=== PATIENT | male | born 1980 | race Caucasian/White ===

== ENCOUNTER 2018-04-26 16:34 | Inpatient (IN) | payer BC ==
[2018-04-26] MEDS ORDERED: SODIUM CHLORIDE 0.9% 1,000 ML IV STA (17:00)
[2018-04-26] MEDS ORDERED: LABETALOL SYRINGE 5 MG/ML IVP STA ×2 (17:01→19:46)
[2018-04-26 17:54] LABS: Basophils # (A) 0.1 k/uL (0-0.2); Basophils % (A) 1 %; Eosinophils # (A) 0.1 k/uL (0-0.7); Eosinophils % (A) 1 %; HCT 45.4 % (39.0-53.0); HGB 15.1 gm/dL (13.0-17.5); Lymphocytes # (A) 1.8 k/uL (1.0-4.8); Lymphocytes % (A) 16 %; MCH 29.2 pg (25.0-35.0); MCHC 33.3 g/dL (31.0-37.0); MCV 87.5 fL (80.0-100.0); Mean Platelet Volume 7.3; Monocytes # (A) 0.6 k/uL (0-1.0); Monocytes % (A) 6 %; Neutrophils # (A) 8.1 k/uL (1.3-7.7); Neutrophils % (A) 74 %; Platelet Count 312 k/uL (150-450); RBC 5.19 m/uL (4.30-5.90); RDW 13.3 % (11.5-15.5); WBC 10.9 k/uL (3.8-10.6)
--- NOTE | 2018-04-26 18:00 | ED ---
URI HPI - General Chief Complaint: Recheck/Abnormal Lab/Rx Stated Complaint: hypertension/elevated troponin Time Seen by Provider: 04/26/18 17:00 Source: patient, EMS, RN notes reviewed, old records reviewed Mode of arrival: EMS Limitations: no limitations - History of Present Illness Initial Comments: This is a 2-year-old male the ER for evaluation. Patient resents today for evaluation and transfer from both in urgent care and [facility]. Patient originally thought it upper respiratory infection with cough and congestion, denies fever no chest pain. Patient was found is significantly elevated blood pressure and transferred to our facility for cardiology evaluation regarding blood pressure control. Patient himself at this time denies any chest pain, no significant shortness of breath or weakness. MD Complaint: cough, nasal congestion -: days(s) Severity: moderate Severity scale (1-10): 5 Quality: other (no pain) Consistency: constant Improves With: nothing Worsens With: nothing Context: sick contacts Associated Symptoms: denies other symptoms Treatments Prior to Arrival: none - Related Data Home Medications Medication Instructions Recorded Confirmed Aspirin/Sod Bicarb/Citric Acid 2 tab PO Q6HR PRN 04/26/18 04/26/18 [Cassie-Renae Original Tab Eff] Allergies Allergy/AdvReac Type Severity Reaction Status Date / Time No Known Allergies Allergy Verified 04/26/18 17:06 Review of Systems ROS Statement: Those systems with pertinent positive or pertinent negative responses have been documented in the HPI. ROS Other: All systems not noted in ROS Statement are negative. Past Medical History Past Medical History: Hypertension, Sleep Apnea/CPAP/BIPAP History of Any Multi-Drug Resistant Organisms: None Reported Additional Past Surgical History / Comment(s): gland removed on neck while a child Past Psychological History: No Psychological Hx Reported Smoking Status: Never smoker Past Alcohol Use History: Rare Past Drug Use History: None Reported General Exam Limitations: no limitations General appearance: alert, in no apparent distress Head exam: Present: atraumatic, normocephalic, normal inspection Eye exam: Present: normal appearance, PERRL, EOMI. Absent: scleral icterus, conjunctival injection, periorbital swelling ENT exam: Present: normal exam, mucous membranes moist Neck exam: Present: normal inspection. Absent: tenderness, meningismus, lymphadenopathy Respiratory exam: Present: normal lung sounds bilaterally, accessory muscle use , decreased breath sounds, prolonged expiratory. Absent: respiratory distress, wheezes, rales, rhonchi, stridor Cardiovascular Exam: Present: normal rhythm, tachycardia, normal heart sounds. Absent: systolic murmur, diastolic murmur, rubs, gallop, clicks GI/Abdominal exam: Present: soft, normal bowel sounds. Absent: distended, tenderness, guarding, rebound, rigid Extremities exam: Present: normal inspection, full ROM, normal capillary refill. Absent: tenderness, pedal edema, joint swelling, calf tenderness Back exam: Present: normal inspection Neurological exam: Present: alert, oriented X3, CN II-XII intact Psychiatric exam: Present: normal affect, normal mood Skin exam: Present: warm, dry, intact, normal color. Absent: rash Course Vital Signs 04/26/18 16:45 Temperature 98.1 F Pulse Rate 102 H Respiratory 18 Rate Blood Pressure 185/125 O2 Sat by Pulse 98 Oximetry - Reevaluation(s) Reevaluation #1: 04/26/18 17:58 Medical record is reviewed and transferring paperwork is reviewed Reevaluation #2: 04/26/18 17:58 Patient given blood pressure control Medical Decision Making - Medical Decision Making 38 male the ER was transferred for evaluation regarding hypertension, patient is brought to our facility for elevated blood pressure. Patient has persistent elevated blood pressure here in the emergency room, patient does not take blood pressure medication at home. Patient will be admitted for cardiology for evaluation - Radiology Data Radiology results: report reviewed (Chest x-rays negative for acute disease) Disposition Clinical Impression: Hypertensive urgency, Hypertension, Upper respiratory infection Disposition: ADMITTED IP TO THIS HOSP Condition: Fair Is patient prescribed a controlled substance at d/c from ED?: No Referrals: None,Stated [Primary Care Provider] - 1-2 days
[2018-04-26 18:07] LABS: INR 0.9 (<1.2); Partial Thromboplastin Time 24.3 sec (22.0-30.0)
[2018-04-26 18:09] LABS: D-Dimer 0.78 mg/L FEU (<0.60)
[2018-04-26 18:10] LABS: Albumin 3.5 g/dL (3.5-5.0); Calcium 9.2 mg/dL (8.4-10.2); Phosphorus 3.3 mg/dL (2.5-4.5); Potassium 4.3 mmol/L (3.5-5.1); Total Bilirubin 0.8 mg/dL (0.2-1.3); Total Protein 6.7 g/dL (6.3-8.2)
[2018-04-26] MEDS ORDERED: IPRATROPIUM-ALBUTEROL 3 ML NEB INHALATION STA (18:15)
[2018-04-26] MEDS ORDERED: IPRATROPIUM-ALBUTEROL 3 ML NEB INHALATION PRN (18:15)
[2018-04-26 18:32] LABS: Creatine Kinase MB 1.4 ng/mL (0.0-2.4)
[2018-04-26 18:34] LABS: Troponin I 0.072 ng/mL (0.000-0.034)
[2018-04-26] MEDS: SODIUM CHLORIDE 0.9% 1,000 ML IV SCH (19:16)
--- NOTE | 2018-04-26 20:52 | CT ---
EXAMINATION TYPE: CT angio chest DATE OF EXAM: 04/26/2018 7:36 PM COMPARISON: None HISTORY: Hypertension CT DLP: 1017.3 mGycm Automated exposure control for dose reduction was used. CONTRAST: CTA scan of the thorax is performed with IV Contrast, patient injected with 100 mL of Isovue 370, pul monary embolism protocol. There are 3-D post processed images.. FINDINGS: There is increased pulmonary interstitial diffuse density. There is no evidence of a pulmonary mass. There is no mediastinal adenopathy. There are no hilar masses. Heart appears slightly enlarged. There is no pericardial effusion. There is normal contrast opacification of the pulmonary arteries. There are no filling defect. There is small bilateral pleural effusions. IMPRESSION: NO EVIDENCE OF PULMONARY EMBOLISM. THERE IS PULMONARY INTERSTITIAL EDEMA AND SMALL PLEURAL EFFUSIONS. THIS COULD BE CONGESTIVE HEART FAILURE.
[2018-04-26] MEDS ORDERED: MORPHINE SULFATE 4 MG/ML SYRINGE IVP STA (21:18)
[2018-04-26] MEDS ORDERED: FUROSEMIDE 10 MG/ML 4 ML VIAL IV STA (21:18)
[2018-04-26] MEDS ORDERED: HEPARIN SODIUM,PORCINE 5,000 UNIT/ML 1 ML VIAL IV ONE (21:18)
[2018-04-26] MEDS ORDERED: hydrALAZINE HCL 20 MG/ML 1 ML VIAL IVP STA (21:18)
[2018-04-26] MEDS ORDERED: MORPHINE SULFATE 4 MG/ML SYRINGE IVP PRN (21:18)
[2018-04-26] MEDS: HEPARIN SOD,PORK IN 0.45% NACL 25,000 UNIT in 0.45% NACL 1 250ML.BAG IV SCH (22:04)
[2018-04-26 22:40] VITALS: BMI 52.9
[2018-04-27] MEDS: HEPARIN SODIUM,PORCINE 5,000 UNIT/ML 1 ML VIAL IV PRN ×2 (03:42→18:20)
[2018-04-27] MEDS ORDERED: ENOXAPARIN 40 MG/0.4 ML SYRINGE SQ SCH (09:00)
--- NOTE | 2018-04-27 09:06 | P.CRDCN ---
History of Present Illness Consult date: 04/27/18 Requesting physician: Juan Thomas Consult reason: hypertension Chief complaint: Hypertension History of present illness: This is a pleasant 38-year-old gentleman who in the past has had hypertension, states that he was in a stressful situation at that time, when she changed jobs his blood pressure stabilized and he discontinued his medication. He is a nonsmoker, not been told to have diabetes or hyperlipidemia however he only follows with a doctor as needed. Patient is obese, and he does have sleep apnea. He also states that his father had a myocardial infarction in his 50s. 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 According to the patient, he felt that he may have an upper respiratory infection, so he went to see his primary care doctor. It was noted there that his blood pressure was exceedingly high, he was given some Catapres and in spite of that continued to have an elevated blood pressure. He was then referred to go to [facility] and EKG was performed there which showed a sinus tachycardia with no acute changes. Laboratory data performed at [place] , sodium 137, potassium 4.3, BUN 18 and creatinine 1.6. Magnesium was 2.2, troponin 0.075. White blood cell count 12.0 hemoglobin 15.8 platelet count 370. Chest x-ray was performed at [place] as well which revealed possible interstitial lung disease and a questionable 1 cm nodule at the left lung base. Small pleural effusion with blunting of the posterior costophrenic angle with no pneumothorax. Because the patient was noted to have a mildly abnormal troponin and blood pressure remained elevated, he was transferred here to [facility]. EKG performed on arrival here showed a normal sinus rhythm with no acute changes. White blood cell count 10.9, hemoglobin 15.1, platelet count 312. D-dimer 0.78. Sodium 135, potassium 4.3, BUN 18 and creatinine 1.3. Plasma lactic acid 1.4 troponin 0.072 BNP 840 and and B-. Blood pressure on arrival here 185/125 with a heart rate of 102, 98% on room air. CTA of the chest was performed here which did not reveal any evidence of pulmonary embolism. There is pulmonary interstitial edema and small pleural effusions which could represent congestive heart failure. Blood pressure this morning 172 /90 with a heart rate in the 100, 92% on 2 L of oxygen. Patient does state that he uses his CPAP at home for sleep apnea however has not used that for the past few days because of his recent upper respiratory symptoms. He has been sleeping in his recliner for the past few days. He denies any overt chest discomfort, but does state that he has felt more short of breath than his usual. Past Medical History Past Medical History: Hypertension, Sleep Apnea/CPAP/BIPAP Additional Past Medical History / Comment(s): uses cpap machine at home History of Any Multi-Drug Resistant Organisms: None Reported Additional Past Surgical History / Comment(s): gland removed on neck while a child Past Anesthesia/Blood Transfusion Reactions: No Reported Reaction Past Psychological History: No Psychological Hx Reported Smoking Status: Never smoker Past Alcohol Use History: Rare Past Drug Use History: None Reported - Past Family History Mother Family Medical History: Diabetes Mellitus Father Family Medical History: Myocardial Infarction ([place]) Additional Family Medical History / Comment(s): from lung cancer Medications and Allergies Home Medications Medication Instructions Recorded Confirmed Type Aspirin/Sod Bicarb/Citric Acid 2 tab PO Q6HR PRN 04/26/18 04/26/18 History [Queenie Original Tab Eff] Allergies Allergy/AdvReac Type Severity Reaction Status Date / Time No Known Allergies Allergy Verified 04/26/18 17:06 Physical Exam Vitals: Vital Signs Temp Pulse Pulse Resp BP BP Pulse Ox 04/27/18 04:00 102 H 18 04/27/18 03:52 98.3 F 102 H 18 172/93 92 L 04/26/18 23:55 98.0 F 96 18 140/65 96 04/26/18 23:11 95 19 04/26/18 22:47 98.2 F 95 19 174/110 95 04/26/18 22:08 84 16 168/108 95 04/26/18 21:16 169/122 04/26/18 21:00 98 16 174/114 95 04/26/18 19:43 183/100 04/26/18 19:02 96 04/26/18 18:57 97 04/26/18 18:54 98.2 F 95 19 174/110 95 04/26/18 18:30 86 20 174/115 96 04/26/18 18:00 99 22 171/108 96 04/26/18 17:30 108 H 22 187/116 96 04/26/18 17:00 99 22 185/125 95 04/26/18 16:45 98.1 F 102 H 18 185/125 98 Intake and Output 04/26/18 04/27/18 04/27/18 22:59 06:59 14:59 Intake Total 815.833 Balance 815.833 Intake: Intake, IV Titration 215.833 Amount Heparin Sod,Pork in 0.45% 55.833 NaCl 25,000 unit In 0.45 % NaCl 1 250ml.bag @ 5. 326 UNITS/KG/HR 10 mls/hr IV .Q24H MALINA Rx#: [id number] Sodium Chloride 0.9% 1, 160 000 ml @ 20 mls/hr IV . Q24H MALINA Rx#:[id number] Oral 600 Other: Voiding Method Toilet Toilet Urinal Urinal # Voids 1 Weight 187 kg 187 kg PHYSICAL EXAMINATION: GENERAL: 38-year-old gentleman in no acute distress at the time of my examination HEENT: Head is atraumatic, normocephalic. Pupils equal, round. Sclera anicteric. Conjunctiva are clear. Mucous membranes of the mouth are moist. Neck is supple. There is no elevated jugular venous pressure. No carotid bruit is heard. HEART EXAMINATION: Heart S1, S2 normal. No murmur or gallop heard. CHEST EXAMINATION: On's are clear with diminished air entry to the bases ABDOMEN: Soft, obese, nontender. Bowel sounds are heard. No organomegaly noted. EXTREMITIES: 2+ peripheral pulses with trace evidence of peripheral edema and no calf tenderness noted. NEUROLOGIC patient is awake, alert and oriented 3 . . Results 04/26/18 17:24 04/26/18 17:24 Cardiac Enzymes 04/26/18 04/26/18 Range/Units 17:24 17:24 AST 33 (17-59) U/L CK-MB (CK-2) 1.4 (0.0-2.4) ng/mL Troponin I 0.072 H* (0.000-0.034) ng/mL Coagulation 04/26/18 04/27/18 Range/Units 17:24 03:04 PT 10.0 (9.0-12.0) sec APTT 24.3 23.2 (22.0-30.0) sec CBC 04/26/18 Range/Units 17:24 WBC 10.9 H (3.8-10.6) k/uL RBC 5.19 (4.30-5.90) m/uL Hgb 15.1 (13.0-17.5) gm/dL Hct 45.4 (39.0-53.0) % Plt Count 312 (150-450) k/uL Comprehensive Metabolic Panel 04/26/18 Range/Units 17:24 Sodium 135 L (137-145) mmol/L Potassium 4.3 (3.5-5.1) mmol/L Chloride 105 (98-107) mmol/L Carbon Dioxide 24 (22-30) mmol/L BUN 18 (9-20) mg/dL Creatinine 1.38 H (0.66-1.25) mg/dL Glucose 94 (74-99) mg/dL Calcium 9.2 (8.4-10.2) mg/dL AST 33 (17-59) U/L ALT 38 (21-72) U/L Alkaline Phosphatase 39 (38-126) U/L Total Protein 6.7 (6.3-8.2) g/dL Albumin 3.5 (3.5-5.0) g/dL Current Medications Generic Name Dose Route Start Last Admin Trade Name Freq PRN Reason Stop Dose Admin Albuterol/Ipratropium 3 ml 04/26/18 18:15 Duoneb 0.5 Mg-3 Mg/3 Ml Soln INHALATION RT-Q4H PRN Shortness Of Breath Or Wheezing Azithromycin 500 mg 04/27/18 09:00 Zithromax PO DAILY [facility] Heparin Sodium (Porcine) 0 unit 04/26/18 21:18 04/27/18 03:42 Heparin IV 4,000 unit PER PROTOCOL PRN Administration Low PTT Protocol Hydralazine HCl 10 mg 04/26/18 21:18 Apresoline IVP Q4HR PRN Blood Pressure - High Sodium Chloride 1,000 mls @ 20 mls/hr 04/26/18 18:15 04/26/18 19:16 Saline 0.9% IV Not Given .Q24H MALINA Heparin Sodium/Sodium Chloride 250 mls @ 10 mls/hr 04/26/18 21:30 04/27/18 03 :39 25,000 unit/ Sodium Chloride IV 8.326 units/kg/hr .Q24H MALINA 15.63 mls/hr Titration Protocol 5.326 UNITS/KG/HR Morphine Sulfate 4 mg 04/26/18 21:18 Morphine Sulfate (Inj) IVP Q4HR PRN Pain Intake and Output 04/26/18 04/27/18 04/27/18 22:59 06:59 14:59 Intake Total 815.833 Balance 815.833 Intake: Intake, IV Titration 215.833 Amount Heparin Sod,Pork in 0.45% 55.833 NaCl 25,000 unit In 0.45 % NaCl 1 250ml.bag @ 5. 326 UNITS/KG/HR 10 mls/hr IV .Q24H MALINA Rx#: [id number] Sodium Chloride 0.9% 1, 160 000 ml @ 20 mls/hr IV . Q24H MALINA Rx#:[id number] Oral 600 Other: Voiding Method Toilet Toilet Urinal Urinal # Voids 1 Weight 187 kg 187 kg 04/26/18 17:24 04/26/18 17:24 Assessment and Plan Plan: Assessment and plan #1 hypertensive urgency #2 morbid obesity #3 sleep apnea #4 possible bronchitis #5 family history of premature coronary artery disease #6 abnormality in troponin, could be secondary to accelerated hypertension, cannot completely rule out underlying coronary artery disease. We will obtain 2 subsequent troponins. Plan We will obtain an echocardiogram with Doppler study. We will also obtain a hemoglobin A1c. Give the patient a one-time dose of IV Lasix. We will also start the patient on beta kelsi and angiotensin kelsi to optimize blood pressure control. Further recommendations to follow. DNP note has been reviewed, I agree with a documented findings and plan of care. Patient was seen and examined.
[2018-04-27 09:52] LABS: Basophils # (A) 0.1 k/uL (0-0.2); Basophils % (A) 1 %; Eosinophils # (A) 0.1 k/uL (0-0.7); Eosinophils % (A) 1 %; HCT 43.6 % (39.0-53.0); Lymphocytes # (A) 2.3 k/uL (1.0-4.8); Lymphocytes % (A) 22 %; MCHC 32.2 g/dL (31.0-37.0); MCV 86.9 fL (80.0-100.0); Mean Platelet Volume 6.5; Monocytes # (A) 0.5 k/uL (0-1.0); Monocytes % (A) 5 %; Neutrophils # (A) 7.2 k/uL (1.3-7.7); Neutrophils % (A) 69 %; Platelet Count 324 k/uL (150-450); RBC 5.02 m/uL (4.30-5.90); RDW 13.6 % (11.5-15.5); WBC 10.4 k/uL (3.8-10.6)
[2018-04-27 10:00] LABS: Partial Thromboplastin Time 25.2 sec (22.0-30.0); Prothrombin Time 10.3 sec (9.0-12.0)
[2018-04-27] MEDS: AZITHROMYCIN 500 MG TAB PO SCH (10:04)
[2018-04-27] MEDS: hydrALAZINE HCL 20 MG/ML 1 ML VIAL IVP PRN ×3 (10:05→22:50)
[2018-04-27] MEDS: FUROSEMIDE 10 MG/ML 4 ML VIAL IV SCH (10:05)
[2018-04-27] MEDS: NADOLOL 20 MG TAB PO SCH ×2 (10:53→19:31)
[2018-04-27] MEDS: LOSARTAN 50 MG TAB PO SCH (10:53)
[2018-04-27 10:59] LABS: Cholesterol 191 mg/dL (<200); HDL Cholesterol 49 mg/dL (40-60); LDL Cholesterol,Calculated 119 mg/dL (0-99); Triglycerides 113 mg/dL (<150)
--- NOTE | 2018-04-27 12:47 | ECHOF ---
Referral Reason:htn MEASUREMENTS -------- HEIGHT: 182.9 cm WEIGHT: 186.9 kg BP: RVIDd: 2.8 cm (< 3.3) IVSd: 1.7 cm (0.6 - 1.1) LVIDd: 6.1 cm (3.9 - 5.3) LVPWd: 1.9 cm (0.6 - 1.1) IVSs: 1.9 cm LVIDs: 5.5 cm LVPWs: 1.8 cm Ao Diam: 3.8 cm (2.0 - 3.7) AV Cusp: 1.8 cm (1.5 - 2.6) LA Diam: 4.1 cm (2.7 - 3.8) MV EXCURSION: 13.189 mm (> 18.000) MV EF SLOPE: 79 mm/s (70 - 150) EPSS: 1.6 cm MV E Dino: 0.96 m/s MV DecT: 191 ms MV A Dino: 0.96 m/s MV E/A Ratio: 1.00 RAP: 5.00 mmHg RVSP: 11.24 mmHg FINDINGS -------- Sinus rhythm. Morbid Obesity This was a techncally difficult study with suboptimal views, , Lumason utilized for enhancement of im ages. The left ventricular size is normal. There is severe concentric left ventricular hypertrophy. Ove rall left ventricular systolic function is mild-moderately impaired with, an EF between 40 - 45 %. The right ventricle is normal in size. The left atrial size is normal. The right atrial size is normal. 5.0mg OF Lumason UTLIZED: 2 OR MORE WALL SEGMENTS NOT VISUALIZED. The aortic valve was not well visualized. Mild mitral annular calcification present. Mild mitral regurgitation is present. Mild tricuspid regurgitation present. There is no evidence of pulmonary hypertension. The right v entricular systolic pressure, as measured by Doppler, is 11.24mmHg. The pulmonic valve was not well visualized. The aortic root size is normal. There is no pericardial effusion. CONCLUSIONS -------- 1. Morbid Obesity 2. This was a techncally difficult study with suboptimal views, , Lumason utilized for enhancement of images. 3. The left ventricular size is normal. 4. There is severe concentric left ventricular hypertrophy. 5. Overall left ventricular systolic function is mild-moderately impaired with, an EF between 40 - 45 %. 6. The right ventricle is normal in size. 7. The left atrial size is normal. 8. The right atrial size is normal. 9. 5.0mg OF Lumason UTLIZED: 2 OR MORE WALL SEGMENTS NOT VISUALIZED. 10. The aortic valve was not well visualized. 11. Mild mitral annular calcification present. 12. Mild mitral regurgitation is present. 13. Mild tricuspid regurgitation present. 14. There is no evidence of pulmonary hypertension. 15. The right ventricular systolic pressure, as measured by Doppler, is 11.24mmHg. 16. The pulmonic valve was not well visualized. 17. The aortic root size is normal. 18. There is no pericardial effusion. RESPIRATORY SCIENTIST: Roxanna Yun RDCS
[2018-04-27] MEDS ORDERED: MORPHINE ORAL SOLN 10 MG/5 ML CUP PO PRN (15:43)
[2018-04-27] MEDS: SODIUM CHLORIDE 0.9% 1,000 ML IV SCH (18:05)
[2018-04-27 20:19] LABS: Hemoglobin A1C 5.4 % (4.0-6.0)
[2018-04-27] MEDS: HEPARIN SOD,PORK IN 0.45% NACL 25,000 UNIT in 0.45% NACL 1 250ML.BAG IV SCH (22:49)
[2018-04-27] MEDS ORDERED: LORazepam 0.5 MG TAB PO STA (23:46)
[2018-04-28 04:45] LABS: Basophils # (A) 0.1 k/uL (0-0.2); Basophils % (A) 1 %; Eosinophils # (A) 0.2 k/uL (0-0.7); Eosinophils % (A) 2 %; HCT 45.7 % (39.0-53.0); HGB 14.5 gm/dL (13.0-17.5); Lymphocytes # (A) 2.8 k/uL (1.0-4.8); Lymphocytes % (A) 21 %; MCH 27.8 pg (25.0-35.0); MCHC 31.8 g/dL (31.0-37.0); MCV 87.4 fL (80.0-100.0); Mean Platelet Volume 6.6; Monocytes # (A) 0.7 k/uL (0-1.0); Monocytes % (A) 6 %; Neutrophils # (A) 9.2 k/uL (1.3-7.7); Neutrophils % (A) 70 %; Platelet Count 320 k/uL (150-450); RBC 5.23 m/uL (4.30-5.90); RDW 13.5 % (11.5-15.5); WBC 13.2 k/uL (3.8-10.6)
[2018-04-28 04:57] LABS: INR 0.9 (<1.2); Partial Thromboplastin Time 42.2 sec (22.0-30.0); Prothrombin Time 10.1 sec (9.0-12.0)
[2018-04-28] MEDS: HEPARIN SODIUM,PORCINE 5,000 UNIT/ML 1 ML VIAL IV PRN (05:10)
[2018-04-28] MEDS: FUROSEMIDE 10 MG/ML 4 ML VIAL IV SCH (08:12)
[2018-04-28] MEDS: NADOLOL 20 MG TAB PO SCH ×2 (08:12→20:17)
[2018-04-28] MEDS: LOSARTAN 50 MG TAB PO SCH (08:12)
[2018-04-28] MEDS: AZITHROMYCIN 500 MG TAB PO SCH (08:12)
--- NOTE | 2018-04-28 13:32 | P.PN ---
Subjective Progress Note Date: 04/28/18 Principal diagnosis: CHF/non-STEMI This is a pleasant 38-year-old gentleman with a past medical history significant for obesity who was admitted to the hospital was hypertensive urgency. The cardiac enzymes were found to be slightly elevated. Also the patient was in mild congestive heart failure. He underwent an echocardiogram which revealed impaired LV function. No significant valvular abnormalities seen. On follow-up with the patient today, April 282018, he is feeling better internal shortness of breath. The blood pressure has improved. Currently he denies having any chest pain or chest discomfort. I am going to keep him on the current dose of Lasix IV. Beside that he is on ARB and also he is on beta kelsi. I am going to add Aldactone to the current medical regimen. He does need to have a heart catheterization either as an inpatient or as an outpatient. Objective - Vital Signs Vital signs: Vital Signs Temp 98.8 F 04/28/18 08:15 Pulse 77 04/28/18 12:10 Resp 17 04/28/18 12:10 BP 154/76 04/28/18 12:10 Pulse Ox 95 04/28/18 12:10 Intake & Output 04/27/18 04/28/18 04/28/18 18:59 06:59 18:59 Intake Total 1134.62 1031.193 360 Balance 1134.62 1031.193 360 Weight 182.2 kg Intake: IV 150 heparin 150 Intake, IV Titration 264.62 431.193 Amount Heparin Sod,Pork in 0.45% 114.62 271.193 NaCl 25,000 unit In 0.45 % NaCl 1 250ml.bag @ 5. 326 UNITS/KG/HR 10 mls/hr IV .Q24H MALINA Rx#: [id number] Sodium Chloride 0.9% 1, 150 160 000 ml @ 20 mls/hr IV . Q24H MALINA Rx#:[id number] Oral 720 600 360 Other: Voiding Method Toilet Urinal # Voids 2 1 2 - Constitutional General appearance: Present: no acute distress - Respiratory Respiratory: bilateral: rales - Cardiovascular Rhythm: regular Heart sounds: normal: S1, S2 - Labs CBC & Chem 7: 04/28/18 04:07 04/26/18 17:24 Labs: Abnormal Lab Results - Last 24 Hours (Table) 04/27/18 04/27/1819 Range/Units 16:03 21:12 21:12 WBC (3.8-10.6) k/uL Neutrophils # (1.3-7.7) k/uL APTT 40.9 H (22.0-30.0) sec Troponin I 0.051 H* 0.044 H* (0.000-0.034) ng/mL 04/28/18 04/28/18 04/28/18 Range/Units 04:07 04:07 11:17 WBC 13.2 H (3.8-10.6) k/uL Neutrophils # 9.2 H (1.3-7.7) k/uL APTT 42.2 H 58.5 H (22.0-30.0) sec Troponin I (0.000-0.034) ng/mL Assessment and Plan Assessment: Assessment #1 hypertension urgency which has improved #2 mildly abnormal cardiac enzymes #3 cardiomyopathy, unknown if is ischemic or nonischemic #4 mild CHF secondary to systolic dysfunction #5 morbid obesity Plan #1 continue the current medical regimen #2 continue IV Lasix for additional 24 hours #3 continue monitor the kidney function and electrolytes #4 add Aldactone to her current medical regimen #5 consider coronary angiogram.
[2018-04-28 15:01] LABS: Calcium 9.5 mg/dL (8.4-10.2); Potassium 4.7 mmol/L (3.5-5.1)
[2018-04-28] MEDS: SODIUM CHLORIDE 0.9% 1,000 ML IV SCH (15:11)
[2018-04-28] MEDS: HEPARIN SOD,PORK IN 0.45% NACL 25,000 UNIT in 0.45% NACL 1 250ML.BAG IV SCH ×2 (15:18→21:28)
[2018-04-29 05:52] LABS: Basophils # (A) 0.1 k/uL (0-0.2); Basophils % (A) 1 %; Eosinophils # (A) 0.3 k/uL (0-0.7); Eosinophils % (A) 2 %; HCT 46.1 % (39.0-53.0); HGB 14.7 gm/dL (13.0-17.5); Lymphocytes % (A) 26 %; MCH 27.9 pg (25.0-35.0); MCHC 31.8 g/dL (31.0-37.0); MCV 87.7 fL (80.0-100.0); Mean Platelet Volume 6.6; Monocytes # (A) 0.6 k/uL (0-1.0); Monocytes % (A) 5 %; Neutrophils # (A) 7.6 k/uL (1.3-7.7); Neutrophils % (A) 64 %; Platelet Count 340 k/uL (150-450); RBC 5.25 m/uL (4.30-5.90); RDW 13.5 % (11.5-15.5); WBC 11.9 k/uL (3.8-10.6)
[2018-04-29 05:59] LABS: Partial Thromboplastin Time 61.1 sec (22.0-30.0); Prothrombin Time 10.5 sec (9.0-12.0)
[2018-04-29] MEDS: SPIRONOLACTONE 25 MG TAB PO SCH (08:08)
[2018-04-29] MEDS: FUROSEMIDE 10 MG/ML 4 ML VIAL IV SCH (08:08)
[2018-04-29] MEDS: AZITHROMYCIN 500 MG TAB PO SCH (08:08)
[2018-04-29] MEDS: NADOLOL 20 MG TAB PO SCH ×2 (08:08→21:12)
[2018-04-29] MEDS: LOSARTAN 50 MG TAB PO SCH (08:08)
--- NOTE | 2018-04-29 11:29 | P.HPIM ---
History of Present Illness H&P Date: 04/29/18 Chief Complaint: Shortness and breath and cough The patient is a 38-year-old morbidly obese male with a medical history of essential hypertension and obstructive sleep apnea that was apparently admitted 3 days ago from the ER. The patient reports that he initially presented to urgent care complaining of 2 weeks of worsening productive cough and increasing shortness of breath with wheezes, the patient reported only cough shortness of breath and chest and head congestion, he denied any subjective fevers chills or night sweats. He was then you referred to [facility] in [place] where he had a workup with EKG showed sinus tachycardia, chest x-ray showed possible interstitial lung disease and a questionable 1 cm nodule on left lung base with small pleural effusion subsequently referred here for extremely elevated blood pressure pressure with hypertensive urgency 185/125 with a referral plan for cardiology given abnormal troponin 0.075. REPEAT EKG here showed sinus mechanism with no evidence of his acute ischemia, BNP 840, troponin was 0.072, d-dimer was 0.78. CTA of the chest was performed and did not reveal evidence of PE but did show pulmonary interstitial edema and small pleural effusions which could represent congestive heart failure. Subsequent 2-D echocardiogram confirmed ejection fraction of 40- 45%. The patient was started on IV heparin, breathing treatments, diuresis with Lasix and spironolactone and started on a Z-Drake. Review of Systems Pertinent positives per HPI all other review of systems otherwise negative Past Medical History Past Medical History: Hypertension, Sleep Apnea/CPAP/BIPAP Additional Past Medical History / Comment(s): uses cpap machine at home History of Any Multi-Drug Resistant Organisms: None Reported Additional Past Surgical History / Comment(s): gland removed on neck while a child Past Anesthesia/Blood Transfusion Reactions: No Reported Reaction Past Psychological History: No Psychological Hx Reported Smoking Status: Never smoker Past Alcohol Use History: Rare Past Drug Use History: None Reported - Past Family History Mother Family Medical History: Diabetes Mellitus Father Family Medical History: Myocardial Infarction ([place]) Additional Family Medical History / Comment(s): from lung cancer Medications and Allergies Home Medications Medication Instructions Recorded Confirmed Type Aspirin/Sod Bicarb/Citric Acid 2 tab PO Q6HR PRN 04/26/18 04/26/18 History [Queenie Original Tab Eff] Albuterol Inhaler [Ventolin Hfa 4 puff INHALATION RT-Q6H PRN #1 04/29/18 Rx Inhaler] inhaler Azithromycin [Zithromax] 500 mg PO DAILY #3 tab 04/29/18 Rx Furosemide [Lasix] 40 mg PO DAILY #30 tab 04/29/18 Rx Losartan [Cozaar] 50 mg PO DAILY #30 tab 04/29/18 Rx Nadolol [Corgard] 20 mg PO BID #60 tab 04/29/18 Rx Spironolactone [Aldactone] 25 mg PO DAILY #30 tab 04/29/18 Rx Allergies Allergy/AdvReac Type Severity Reaction Status Date / Time No Known Allergies Allergy Verified 04/26/18 17:06 Physical Exam Vitals: Vital Signs Temp Pulse Resp BP Pulse Ox 04/29/18 08:00 97.9 F 76 20 144/89 98 04/29/18 04:00 98.2 F 70 16 129/75 94 L 04/29/18 00:00 97.9 F 80 18 138/81 98 04/28/18 20:00 98.4 F 71 18 142/96 96 04/28/18 16:30 78 18 146/89 96 04/28/18 12:10 77 17 154/76 95 Intake and Output 04/28/18 04/29/18 04/29/18 22:59 06:59 14:59 Intake Total 570.715 160 360 Balance 570.715 160 360 Intake: Intake, IV Titration 210.715 160 Amount Heparin Sod,Pork in 0.45% 210.715 NaCl 25,000 unit In 0.45 % NaCl 1 250ml.bag @ 5. 326 UNITS/KG/HR 10 mls/hr IV .Q24H [facility] Rx#: [id number] Sodium Chloride 0.9% 1, 160 000 ml @ 20 mls/hr IV . Q24H [facility] Rx#:[id number] Oral 360 360 Other: Voiding Method Toilet Toilet Urinal Urinal # Voids 3 1 2 Weight 181.6 kg Constitutional: No acute distress, conversant, pleasant Eyes: Anicteric sclerae, moist conjunctiva, no lid-lag, PERRLA ENMT: NC/AT,Oropharynx clear, no erythema, exudates Neck:Supple, FROM, no masses, or JVD, No carotid bruits; No thyromegaly Lungs: Clear to auscultation, Clear to percussion, Normal respiratory effort, no accessory muscle use Cardiovascular: Heart regular in rate and rhythm, No murmurs, gallops, or rubs no peripheral edema Abdominal: Soft Nontender, nom distended, no guarding, no rebound or rigidity, Normoactive bowel sounds No hepatomegaly, No splenomegaly, No palpable mass No abdominal wall hernia noted Skin: Normal temperature, tone, texture, turgor, No induration No subcutaneous nodules, No rash, lesions, No ulcers Extremities:No digital cyanosis No clubbing, Pedal pulses intact and symmetrical Radial pulses intact and symmetrical Normal gait and station, No calf tenderness Psychiatric: Alert and oriented to person, place and time, Appropriate affect Intact judgement Neuro: Muscles Strength 5/5 in all 4 extremities, Sensation to light touch grossly present throughout, Cranial nerves II-XII grossly intact. No focal sensory deficits Results CBC & Chem 7: 04/29/18 05:36 04/29/18 05:36 Labs: Abnormal Lab Results - Last 24 Hours (Table) 04/28/18 04/28/18 04/29/18 Range/Units 11:17 14:11 05:36 WBC 11.9 H (3.8-10.6) k/uL APTT 58.5 H (22.0-30.0) sec Sodium 136 L (137-145) mmol/L BUN 26 H (9-20) mg/dL Creatinine 1.62 H (0.66-1.25) mg/dL 04/29/18 Range/Units 05:36 WBC (3.8-10.6) k/uL APTT 61.1 H (22.0-30.0) sec Sodium (137-145) mmol/L BUN (9-20) mg/dL Creatinine (0.66-1.25) mg/dL Thrombosis Risk Factor Assmnt - Choose All That Apply Any of the Below Risk Factors Present?: Yes Each Factor Represents 1 point: Obesity (BMI >25) Other Risk Factors: No Other congenital or acquired thrombophilia - If yes, enter type in comment: No Thrombosis Risk Factor Assessment Total Risk Factor Score: 1 Thrombosis Risk Factor Assessment Level: Low Risk Assessment and Plan (1) Acute bronchitis Current Visit: Yes Status: Acute Code(s): J20.9 - ACUTE BRONCHITIS, UNSPECIFIED SNOMED Code(s): 00583942 (2) Elevated troponin Current Visit: Yes Status: Acute Code(s): R74.8 - ABNORMAL LEVELS OF OTHER SERUM ENZYMES SNOMED Code(s): 171111654 (3) Systolic CHF, acute Current Visit: Yes Status: Acute Code(s): I50.21 - ACUTE SYSTOLIC ( CONGESTIVE) HEART FAILURE SNOMED Code(s): 095853721 (4) Dyspnea Current Visit: Yes Status: Acute Code(s): R06.00 - DYSPNEA, UNSPECIFIED SNOMED Code(s): 887653943 (5) Hypertensive urgency Current Visit: Yes Status: Acute Code(s): I16.0 - HYPERTENSIVE URGENCY SNOMED Code(s): 563965967 (6) HARVINDER (acute kidney injury) Current Visit: Yes Status: Acute Code(s): N17.9 - ACUTE KIDNEY FAILURE, UNSPECIFIED SNOMED Code(s): 22359912 Plan: The patient was admitted with multifactorial dyspnea secondary to acute bronchitis superimposed on the acute systolic CHF exacerbation in the setting of hypertensive urgency the patient was initially started on IV Lasix and initiated on a hypertensive regimen to bring down his blood pressure was started on beta kelsi nadolol, ARB losartan, diuretics Lasix and Aldactone. The patient diuresed well gradually became clinically euvolemic, the patient was seen by cardiology, and was determined elevated troponins were triggered by his hypertensive urgency in the setting acute systolic CHF. The patient was continue with treatment for acute bronchitis with a Z-Drake along with breathing treatments. The patient's status clinically improved his IV anticoagulation with heparin was discontinued, After being cleared by cardiology with plans for follow-up later this week with Dr. London. Repeat BMP today showing worsening kidney injury with creatinine trending up to 1.7, possibly secondary to diuresis will order renal ultrasound consult nephrology for further recommendations. Patient placed on SCDs for DVT prophylaxis CODE STATUS Full code Anticipated discharge 1-2 days Discussed plan of care with the patient
--- NOTE | 2018-04-29 12:11 | P.PN ---
Subjective Progress Note Date: 04/29/18 This is a pleasant 38-year-old gentleman who in the past has had hypertension, states that he was in a stressful situation at that time, when she changed jobs his blood pressure stabilized and he discontinued his medication. He is a nonsmoker, not been told to have diabetes or hyperlipidemia however he only follows with a doctor as needed. Patient is obese, and he does have sleep apnea. He also states that his father had a myocardial infarction in his 50s. 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 According to the patient, he felt that he may have an upper respiratory infection, so he went to see his primary care doctor. It was noted there that his blood pressure was exceedingly high, he was given some Catapres and in spite of that continued to have an elevated blood pressure. He was then referred to go to [facility] and EKG was performed there which showed a sinus tachycardia with no acute changes. Laboratory data performed at [facility] , sodium 137, potassium 4.3, BUN 18 and creatinine 1.6. Magnesium was 2.2, troponin 0.075. White blood cell count 12.0 hemoglobin 15.8 platelet count 370. Chest x-ray was performed at [facility] as well which revealed possible interstitial lung disease and a questionable 1 cm nodule at the left lung base. Small pleural effusion with blunting of the posterior costophrenic angle with no pneumothorax. Because the patient was noted to have a mildly abnormal troponin and blood pressure remained elevated, he was transferred here to [facility]. EKG performed on arrival here showed a normal sinus rhythm with no acute changes. White blood cell count 10.9, hemoglobin 15.1, platelet count 312. D-dimer 0.78. Sodium 135, potassium 4.3, BUN 18 and creatinine 1.3. Plasma lactic acid 1.4 troponin 0.072 BNP 840 and and B-. Blood pressure on arrival here 185/125 with a heart rate of 102, 98% on room air. CTA of the chest was performed here which did not reveal any evidence of pulmonary embolism. There is pulmonary interstitial edema and small pleural effusions which could represent congestive heart failure. Blood pressure this morning 172 /90 with a heart rate in the 100, 92% on 2 L of oxygen. Patient does state that he uses his CPAP at home for sleep apnea however has not used that for the past few days because of his recent upper respiratory symptoms. He has been sleeping in his recliner for the past few days. He denies any overt chest discomfort, but does state that he has felt more short of breath than his usual. 04/29/2018 Patient seen and examined this morning, states he is feeling much better than on presentation here, creatinine today is 1.6, blood pressure 144/70. Weight is down 1 kg today. Objective - Vital Signs Vital signs: Vital Signs Temp 97.9 F 04/29/18 11:31 Pulse 68 04/29/18 11:31 Resp 20 04/29/18 11:31 BP 167/97 04/29/18 11:31 Pulse Ox 96 04/29/18 11:31 Intake & Output 04/28/18 04/29/18 04/29/18 18:59 06:59 18:59 Intake Total 1080 370.715 360 Balance 1080 370.715 360 Weight 181.6 kg Intake: Intake, IV Titration 370.715 Amount Heparin Sod,Pork in 0.45% 210.715 NaCl 25,000 unit In 0.45 % NaCl 1 250ml.bag @ 5. 326 UNITS/KG/HR 10 mls/hr IV .Q24H [facility] Rx#: [id number] Sodium Chloride 0.9% 1, 160 000 ml @ 20 mls/hr IV . Q24H [facility] Rx#:[id number] Oral 1080 360 Other: Voiding Method Toilet Urinal # Voids 3 1 2 - Exam PHYSICAL EXAMINATION: GENERAL: 38-year-old gentleman in no acute distress at the time of my examination HEENT: Head is atraumatic, normocephalic. Pupils equal, round. Sclera anicteric. Conjunctiva are clear. Mucous membranes of the mouth are moist. Neck is supple. There is no elevated jugular venous pressure. No carotid bruit is heard. HEART EXAMINATION: Heart S1, S2 normal. No murmur or gallop heard. CHEST EXAMINATION: Lungs are clear to auscultation ABDOMEN: Soft, obese, nontender. Bowel sounds are heard. No organomegaly noted. EXTREMITIES: 2+ peripheral pulses with trace evidence of peripheral edema and no calf tenderness noted. NEUROLOGIC patient is awake, alert and oriented 3 . - Labs CBC & Chem 7: 04/29/18 05:36 04/28/18 14:11 Labs: Abnormal Lab Results - Last 24 Hours (Table) 04/28/18 04/28/18 04/29/18 Range/Units 11:17 14:11 05:36 WBC 11.9 H (3.8-10.6) k/uL APTT 58.5 H (22.0-30.0) sec Sodium 136 L (137-145) mmol/L BUN 26 H (9-20) mg/dL Creatinine 1.62 H (0.66-1.25) mg/dL 04/29/18 Range/Units 05:36 WBC (3.8-10.6) k/uL APTT 61.1 H (22.0-30.0) sec Sodium (137-145) mmol/L BUN (9-20) mg/dL Creatinine (0.66-1.25) mg/dL Assessment and Plan Plan: Assessment and plan #1 hypertensive urgency #2 morbid obesity #3 sleep apnea #4 possible bronchitis #5 family history of premature coronary artery disease #6 abnormality in troponin, could be secondary to accelerated hypertension, cannot completely rule out underlying coronary artery disease. Plan From cardiology's perspective, we'll discontinue the IV Lasix today and change patient over to oral diuretics. He may be able to be discharged home from our standpoint. We'll make him a follow-up appointment to see Dr. London in the office post discharge. Outpatient cardiac catheterization will be performed. DNP note has been reviewed, I agree with a documented findings and plan of care. Patient was seen and examined.
[2018-04-29 13:45] LABS: Calcium 9.4 mg/dL (8.4-10.2); Magnesium 2.3 mg/dL (1.6-2.3); Potassium 4.6 mmol/L (3.5-5.1)
--- NOTE | 2018-04-29 16:06 | US ---
EXAMINATION TYPE: US kidneys/renal and bladder DATE OF EXAM: 04/29/2018 COMPARISON: NONE CLINICAL HISTORY: 38-year-old male HARVINDER vs CKD. TECHNIQUE: Multiple sonographic images of the kidneys and bladder are obtained. 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 No significant cortical thickening on either side. Bladder: Partially distended Bilateral Jets seen: Yes IMPRESSION: No hydronephrosis. The kidneys are overall normal in size
[2018-04-29] MEDS: HEPARIN SOD,PORK IN 0.45% NACL 25,000 UNIT in 0.45% NACL 1 250ML.BAG IV SCH (22:30)
[2018-04-30 00:54] VITALS: RESP 15
[2018-04-30] MEDS: SODIUM CHLORIDE 0.9% 1,000 ML IV SCH (06:22)
[2018-04-30 07:31] LABS: Basophils # (A) 0.1 k/uL (0-0.2); Basophils % (A) 1 %; Eosinophils # (A) 0.2 k/uL (0-0.7); Eosinophils % (A) 2 %; HCT 47.6 % (39.0-53.0); HGB 15.1 gm/dL (13.0-17.5); Lymphocytes # (A) 2.2 k/uL (1.0-4.8); Lymphocytes % (A) 20 %; MCH 28.3 pg (25.0-35.0); MCHC 31.8 g/dL (31.0-37.0); Mean Platelet Volume 6.7; Monocytes # (A) 0.8 k/uL (0-1.0); Monocytes % (A) 7 %; Neutrophils # (A) 7.4 k/uL (1.3-7.7); Neutrophils % (A) 67 %; Platelet Count 338 k/uL (150-450); RBC 5.34 m/uL (4.30-5.90); RDW 13.4 % (11.5-15.5)
[2018-04-30 07:38] LABS: Partial Thromboplastin Time 24.3 sec (22.0-30.0); Prothrombin Time 10.3 sec (9.0-12.0)
[2018-04-30 07:48] LABS: Calcium 9.7 mg/dL (8.4-10.2); Potassium 4.9 mmol/L (3.5-5.1)
[2018-04-30] MEDS ORDERED: FUROSEMIDE 40 MG TAB PO SCH (09:00)
[2018-04-30] MEDS: AZITHROMYCIN 500 MG TAB PO SCH (09:08)
[2018-04-30] MEDS: LOSARTAN 50 MG TAB PO SCH (09:08)
[2018-04-30] MEDS: NADOLOL 20 MG TAB PO SCH (09:08)
[2018-04-30] MEDS: SPIRONOLACTONE 25 MG TAB PO SCH (09:08)
[2018-04-30 11:19] VITALS: BP 129/84; TEMP 98.1
--- NOTE | 2018-04-30 12:18 | P.NPCON ---
History of Present Illness - Reason for Consult acute renal failure - History of Present Illness Reason for presentation: Acute kidney injury History of present illness: Patient is a 38-year-old male seen in renal consultation for acute kidney injury. Creatinine on 04/26/2018 was 1.38. It is up to 1.77 today. No other records available. 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 Patient presented to the hospital due to elevated high blood pressure. Echocardiogram revealed ejection fraction of 40-45%. He was initially on IV Lasix and is now maintained on oral Lasix 40 mg once daily. No edema. Denies any active chest pain or shortness of breath. Admits to good urine output. No hematuria or dysuria. Denies use of NSAIDs. Blood pressure is well controlled. No evidence of hydronephrosis noted on renal ultrasound. Denies family history of renal disease. No history of diabetes. He did receive IV contrast dye for CT on April 26 which revealed no evidence of PE. Vital signs are stable. General: The patient appeared well nourished and normally developed. HEENT: Head exam is unremarkable. Neck is without jugular venous distension. LUNGS: Lungs are clear to auscultation and percussion. Breath sounds decreased. HEART: Rate and Rhythm are regular. First and second heart sounds normal. No murmurs, rubs or gallops. ABDOMEN: Abdominal exam reveals normal bowel sounds. Non-tender and non- distended. No evidence of peritonitis. EXTREMITITES: No clubbing, cyanosis, or edema. Past Medical History Past Medical History: Hypertension, Sleep Apnea/CPAP/BIPAP Additional Past Medical History / Comment(s): uses cpap machine at home History of Any Multi-Drug Resistant Organisms: None Reported Additional Past Surgical History / Comment(s): gland removed on neck while a child Past Anesthesia/Blood Transfusion Reactions: No Reported Reaction Past Psychological History: No Psychological Hx Reported Smoking Status: Never smoker Past Alcohol Use History: Rare Past Drug Use History: None Reported - Past Family History Mother Family Medical History: Diabetes Mellitus Father Family Medical History: Myocardial Infarction ([place]) Additional Family Medical History / Comment(s): from lung cancer Medications and Allergies Home Medications Medication Instructions Recorded Confirmed Type Aspirin/Sod Bicarb/Citric Acid 2 tab PO Q6HR PRN 04/26/18 04/26/18 History [Queenie Original Tab Eff] Albuterol Inhaler [Ventolin Hfa 4 puff INHALATION RT-Q6H PRN #1 04/29/18 Rx Inhaler] inhaler Azithromycin [Zithromax] 500 mg PO DAILY #3 tab 04/29/18 Rx Furosemide [Lasix] 40 mg PO DAILY #30 tab 04/29/18 Rx Losartan [Cozaar] 50 mg PO DAILY #30 tab 04/29/18 Rx Nadolol [Corgard] 20 mg PO BID #60 tab 04/29/18 Rx Spironolactone [Aldactone] 25 mg PO DAILY #30 tab 04/29/18 Rx Allergies Allergy/AdvReac Type Severity Reaction Status Date / Time No Known Allergies Allergy Verified 04/26/18 17:06 Physical Exam Vitals: Vital Signs Temp Pulse Resp BP Pulse Ox 04/30/18 08:00 98.1 F 75 129/84 97 04/30/18 06:02 70 15 129/82 98 04/30/18 00:54 75 15 132/83 97 04/29/18 21:11 98.7 F 100 16 138/83 99 04/29/18 16:00 97.8 F 69 20 121/67 94 L Intake and Output 04/29/18 04/30/18 04/30/18 22:59 06:59 14:59 Intake Total 360 600 360 Balance 360 600 360 Intake: Oral 360 600 360 Other: Voiding Method Toilet Toilet Urinal Urinal # Voids 2 3 1 Weight 181 kg Results - Lab Results Most recent lab results Calcium 9.7 mg/dL (8.4-10.2) 04/30/18 06:50 Phosphorus 3.3 mg/dL (2.5-4.5) 04/26/18 17:24 Magnesium 2.3 mg/dL (1.6-2.3) 04/29/18 05:36 04/30/18 06:50 04/30/18 06:50 Assessment and Plan Plan: Assessment: 1. Acute kidney injury secondary to ATN secondary to contrast-induced nephropathy as well as diuresis. Creatinine 1.77 today. No evidence of hydronephrosis noted on renal ultrasound. Unclear as to what his baseline renal function is. Creatinine on admission was 1.38. 2. Systolic CHF with ejection fraction of 40-45%. 3. Volume overload. Better. 4. Benign hypertension. Controlled. Partially volume sensitive. 5. Metabolic acidosis secondary to acute kidney injury. Plan: Maintain Lasix 40 mg once daily. Stable to be discharged from nephrology standpoint. Repeat BMP and magnesium in 2-3 days postdischarge. Follow up outpatient in the next 1-2 weeks. Thank you for the consultation. I will continue to follow the patient with you during his hospital stay.
--- NOTE | 2018-04-30 13:48 | P.DS ---
Providers Date of admission: 04/26/18 18:15 Expected date of discharge: 04/30/18 Attending physician: Juan Thomas MD Consults: 04/26/18 18:15 Consult Physician Routine Consulting Provider: Meng Simpson Consult Reason/Comments: HTN Do you want consulting provider notified?: Yes 04/29/18 14:20 Consult Physician Routine Consulting Provider: Keo Lyons Consult Reason/Comments: HARVINDER vs cKD Do you want consulting provider notified?: Yes Primary care physician: Stated None - Discharge Diagnosis(es) (1) Acute bronchitis Current Visit: Yes Status: Acute (2) Elevated troponin Current Visit: Yes Status: Acute (3) Systolic CHF, acute Current Visit: Yes Status: Acute (4) Dyspnea Current Visit: Yes Status: Acute (5) Hypertensive urgency Current Visit: Yes Status: Acute (6) HARVINDER (acute kidney injury) Current Visit: Yes Status: Acute Hospital Course: The patient was admitted with multifactorial dyspnea secondary to acute bronchitis superimposed on the acute systolic CHF exacerbation in the setting of hypertensive urgency the patient was initially started on IV Lasix and initiated on a hypertensive regimen to bring down his blood pressure was started on beta kelsi nadolol, ARB losartan, diuretics Lasix and Aldactone. The patient diuresed well gradually became clinically euvolemic, the patient was seen by cardiology, and was determined elevated troponins were triggered by his hypertensive urgency in the setting acute systolic CHF. The patient was continue with treatment for acute bronchitis with a Z-Drake along with breathing treatments. The patient's status clinically improved his IV anticoagulation with heparin was discontinued, After being cleared by cardiology with plans for follow-up later this week with Dr. London. Repeat BMP today showing worsening kidney injury with creatinine trending up to 1.7, possibly secondary to diuresis with a componenent of contrast induced nephropathy per Dr. Lyons. The patient was discharged home in stable condition with plans to have follow- up BMP/Mg in 3 days as recommended by nephrology. This discharge process took approximately 35 minutes. Focused exam Respiratory: Diminished in the bases clear to auscultation bilaterally, no wheezes or rhonchi Cardiac: Regular rate rhythm no murmurs or gallops, no peripheral edema or JVD Patient Condition at Discharge: Good Plan - Discharge Summary Discharge Rx Participant: No New Discharge Prescriptions: New Albuterol Inhaler [Ventolin Hfa Inhaler] 4 puff INHALATION RT-Q6H PRN #1 inhaler PRN Reason: shortness of breath/cough Azithromycin [Zithromax] 500 mg PO DAILY #3 tab Furosemide [Lasix] 40 mg PO DAILY #30 tab Losartan [Cozaar] 50 mg PO DAILY #30 tab Nadolol [Corgard] 20 mg PO BID #60 tab Spironolactone [Aldactone] 25 mg PO DAILY #30 tab Continue Aspirin/Sod Bicarb/Citric Acid [[place] Original Tab Eff] 2 tab PO Q6HR PRN PRN Reason: Flu Symptoms Discharge Medication List Aspirin/Sod Bicarb/Citric Acid [[place] Original Tab Eff] 2 tab PO Q6HR PRN 04/26/18 [History] Albuterol Inhaler [Ventolin Hfa Inhaler] 4 puff INHALATION RT-Q6H PRN #1 inhaler 04/29/18 [Rx] Azithromycin [Zithromax] 500 mg PO DAILY #3 tab 04/29/18 [Rx] Furosemide [Lasix] 40 mg PO DAILY #30 tab 04/29/18 [Rx] Losartan [Cozaar] 50 mg PO DAILY #30 tab 04/29/18 [Rx] Nadolol [Corgard] 20 mg PO BID #60 tab 04/29/18 [Rx] Spironolactone [Aldactone] 25 mg PO DAILY #30 tab 04/29/18 [Rx] Follow up Appointment(s)/Referral(s): Meng Simpson MD [STAFF PHYSICIAN] - 05/14/18 4:30 pm (Sunday) None,Stated [Primary Care Provider] - 1-2 days (Please find and schedule an appointment with a primary care physician) Keo Lyons DO [STAFF PHYSICIAN] - 05/22/18 10:00 am Ambulatory/Diagnostic Orders: Basic Metabolic Panel [LAB.AMB] Time Frame: 3 Days, Facility: [facility] , Location: Laboratory Department Magnesium [LAB.AMB] Time Frame: 3 Days, Facility: [facility], Location: Laboratory Department Patient Instructions/Handouts: Heart Failure (DC), Acute Bronchitis (ED), DASH Eating Plan (DC), Hypertensive Crisis (DC) Discharge Disposition: HOME SELF-CARE
[2018-04-30 14:36] VITALS: PULSE 72
--- NOTE | 2018-04-30 15:46 | P.PN ---
Subjective Progress Note Date: 04/30/18 This is a pleasant 38-year-old gentleman who in the past has had hypertension, states that he was in a stressful situation at that time, when she changed jobs his blood pressure stabilized and he discontinued his medication. He is a nonsmoker, not been told to have diabetes or hyperlipidemia however he only follows with a doctor as needed. Patient is obese, and he does have sleep apnea. He also states that his father had a myocardial infarction in his 50s. 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 According to the patient, he felt that he may have an upper respiratory infection, so he went to see his primary care doctor. It was noted there that his blood pressure was exceedingly high, he was given some Catapres and in spite of that continued to have an elevated blood pressure. He was then referred to go to [facility] and EKG was performed there which showed a sinus tachycardia with no acute changes. Laboratory data performed at [place] , sodium 137, potassium 4.3, BUN 18 and creatinine 1.6. Magnesium was 2.2, troponin 0.075. White blood cell count 12.0 hemoglobin 15.8 platelet count 370. Chest x-ray was performed at [place] as well which revealed possible interstitial lung disease and a questionable 1 cm nodule at the left lung base. Small pleural effusion with blunting of the posterior costophrenic angle with no pneumothorax. Because the patient was noted to have a mildly abnormal troponin and blood pressure remained elevated, he was transferred here to [facility]. EKG performed on arrival here showed a normal sinus rhythm with no acute changes. White blood cell count 10.9, hemoglobin 15.1, platelet count 312. D-dimer 0.78. Sodium 135, potassium 4.3, BUN 18 and creatinine 1.3. Plasma lactic acid 1.4 troponin 0.072 BNP 840 and and B-. Blood pressure on arrival here 185/125 with a heart rate of 102, 98% on room air. CTA of the chest was performed here which did not reveal any evidence of pulmonary embolism. There is pulmonary interstitial edema and small pleural effusions which could represent congestive heart failure. Blood pressure this morning 172 /90 with a heart rate in the 100, 92% on 2 L of oxygen. Patient does state that he uses his CPAP at home for sleep apnea however has not used that for the past few days because of his recent upper respiratory symptoms. He has been sleeping in his recliner for the past few days. He denies any overt chest discomfort, but does state that he has felt more short of breath than his usual. 04/29/2018 Patient seen and examined this morning, states he is feeling much better than on presentation here, creatinine today is 1.6, blood pressure 144/70. Weight is down 1 kg today. 04/30/2018 Patient seen and examined this morning, feels well, denies any chest pain or difficulty in breathing. Blood pressure 128/80 with a heart rate in the 70s, 97 % on room air. White blood cell count 11.0, hemoglobin 15, platelet count 338. Sodium 136, potassium 4.9, BUN 33 and creatinine 1.7. Objective - Vital Signs Vital signs: Vital Signs Temp 98.1 F 04/30/18 08:00 Pulse 72 04/30/18 12:00 Resp 15 04/30/18 06:02 BP 129/84 04/30/18 08:00 Pulse Ox 97 04/30/18 08:00 Intake & Output 04/29/18 04/30/18 04/30/18 18:59 06:59 18:59 Intake Total 1080 600 360 Balance 1080 600 360 Weight 181 kg Intake: Oral 1080 600 360 Other: Voiding Method Toilet Urinal # Voids 2 3 1 - Exam PHYSICAL EXAMINATION: GENERAL: 38-year-old gentleman in no acute distress at the time of my examination HEENT: Head is atraumatic, normocephalic. Pupils equal, round. Sclera anicteric. Conjunctiva are clear. Mucous membranes of the mouth are moist. Neck is supple. There is no elevated jugular venous pressure. No carotid bruit is heard. HEART EXAMINATION: Heart S1, S2 normal. No murmur or gallop heard. CHEST EXAMINATION: Lungs are clear to auscultation ABDOMEN: Soft, obese, nontender. Bowel sounds are heard. No organomegaly noted. EXTREMITIES: 2+ peripheral pulses with trace evidence of peripheral edema and no calf tenderness noted. NEUROLOGIC patient is awake, alert and oriented 3 . - Labs CBC & Chem 7: 04/30/18 06:50 04/30/18 06:50 Labs: Abnormal Lab Results - Last 24 Hours (Table) 04/30/18 04/30/18 Range/Units 06:50 06:50 WBC 11.0 H (3.8-10.6) k/uL Sodium 136 L (137-145) mmol/L Carbon Dioxide 21 L (22-30) mmol/L BUN 33 H (9-20) mg/dL Creatinine 1.77 H (0.66-1.25) mg/dL Assessment and Plan Plan: Assessment and plan #1 hypertensive urgency #2 morbid obesity #3 sleep apnea #4 possible bronchitis #5 family history of premature coronary artery disease #6 abnormality in troponin, could be secondary to accelerated hypertension, cannot completely rule out underlying coronary artery disease. Plan From cardiology's perspective, patient may be able to be discharged home today we'll make him a follow-up appointment to see Dr. London in the office post discharge. DNP note has been reviewed, I agree with a documented findings and plan of care. Patient was seen and examined.
== END 2018-04-30 15:00 | disposition home or self-care (01) | DRG 304 ==
LOC: EC 16:34 → 3SCARD 18:15
PROVIDERS: ADMIT Internal Medicine; ATTEND Internal Medicine
DX: I16.0 Hypertensive urgency (principal); I50.23 Acute on chronic systolic (congestive) heart failure; N17.0 Acute kidney failure with tubular necrosis; E87.2 Acidosis; I42.9 Cardiomyopathy, unspecified; Z68.43 Body mass index [BMI] 50.0-59.9, adult; J20.9 Acute bronchitis, unspecified; I11.0 Hypertensive heart disease with heart failure; E66.01 Morbid (severe) obesity due to excess calories; G47.33 Obstructive sleep apnea (adult) (pediatric); N14.1 Nephropathy induced by other drugs, medicaments and biological substances; T50.8X5A Adverse effect of diagnostic agents, initial encounter; Y92.239 Unspecified place in hospital as the place of occurrence of the external cause; Z99.89 Dependence on other enabling machines and devices; Z82.49 Family history of ischemic heart disease and other diseases of the circulatory system; Z80.1 Family history of malignant neoplasm of trachea, bronchus and lung; Z79.899 Other long term (current) drug therapy; Z83.3 Family history of diabetes mellitus
CPT/HCPCS: 36415; 71275; 76770; 80048; 80053; 80061; 82550; 82553; 83036; 83605; 83735; 83880; 84100; 84484; 85025; 85379; 85610; 85730; 87502; 93005; 93306; 94640; 94760; 96361; 96365; 96375; 96376; 99285

== ENCOUNTER → 2018-06-07 | Outpatient (CLI) | payer BC ==
[2018-06-07 07:07] LABS: HGB 14.9 gm/dL (13.0-17.5); MCH 29.3 pg (25.0-35.0); MCHC 33.8 g/dL (31.0-37.0); MCV 86.9 fL (80.0-100.0); Mean Platelet Volume 6.9; Platelet Count 274 k/uL (150-450); RBC 5.06 m/uL (4.30-5.90); RDW 13.2 % (11.5-15.5); WBC 7.9 k/uL (3.8-10.6)
[2018-06-07 07:24] LABS: Potassium 5.1 mmol/L (3.5-5.1)
== END ==
LOC: LABPAT 06:43
PROVIDERS: ATTEND Internal Medicine Interventional Cardiology
DX: Z01.812 Encounter for preprocedural laboratory examination (principal); I50.20 Unspecified systolic (congestive) heart failure; I10 Essential (primary) hypertension
CPT/HCPCS: 36415; 80051; 82565; 84520; 85027

== ENCOUNTER → 2018-06-13 | Day surgery (SDC) | payer BC ==
[2018-06-06 16:04] VITALS: BMI 50.1
[~2018-06-13] MED LIST: ALPRAZolam 0.25 MG TAB PO PRN; ALPRAZolam 0.5 MG TAB PO PRN; ASPIRIN 325 MG TAB PO STA; ATORVASTATIN 80 MG TAB PO STA; IV FLUID CONTINUATION 1,000 ML IV ONE; NITROGLYCERIN SL TABS 0.4 MG TAB SUBLINGUAL PRN; SODIUM CHLORIDE 0.9% 1,000 ML in EMPTY BAG 1 BAG IV ONE
[2018-06-13 09:36] VITALS: BP 136/74; PULSE 78; RESP 18; TEMP 98.2
== END | disposition home or self-care (01) ==
LOC: CATHCVL 08:48
PROVIDERS: ATTEND Internal Medicine Interventional Cardiology
DX: I11.0 Hypertensive heart disease with heart failure (principal); I50.22 Chronic systolic (congestive) heart failure; Z53.29 Procedure and treatment not carried out because of patient's decision for other reasons

== ENCOUNTER → 2018-06-24 | Day surgery (SDC) | payer BC ==
[2018-06-17 15:37] VITALS: BMI 50.4
[~2018-06-24] MED LIST changes: +HEPARIN SODIUM 1,000 UN/ML (10ML VL) IV ONE; +HEPARIN SODIUM 1,000 UN/ML (10ML VL) ONE; +IOPAMIDOL-370 150ML BTL INJ ONE; -IV FLUID CONTINUATION 1,000 ML IV ONE; +LIDOCAINE 1% INJ 10MG/ML (20 ML MDV) ONE; +LIDOCAINE 1% INJ 10MG/ML (20 ML MDV) SQ ONE; +MIDAZOLAM 2 MG/2 ML VIAL IVP ONE; +RX INFO: IV CONTRAST WAS GIVEN 1 EACH MISC MISCELLANE PRN; +SODIUM CHLORIDE 0.9% 1,000 ML IV ONE; +SODIUM CHLORIDE 0.9% 1,000 ML IV SCH; +VERAPAMIL 2.5 MG/ML 2 ML AMP ONE
[2018-06-24 08:57] VITALS: RESP 16; TEMP 98.4
[2018-06-24] MEDS: VERAPAMIL SYRINGE (5 MG/10 ML) INTRAARTER ONE ×2 (10:00→10:07)
--- NOTE | 2018-06-24 11:19 | CC ---
CARDIAC CATHETERIZATION REPORT DATE OF SERVICE: June 24, 2018 PERFORMING PHYSICIAN: Meng Simpson MD, client success director. PROCEDURE PERFORMED: 1. Selective right and left coronary angiogram. 2. Left heart catheterization. INDICATION: This is a 38-year-old gentleman who was admitted recently to the hospital with congestive heart failure and was diagnosed with cardiomyopathy. The heart catheterization is to rule out any severe CAD. APPROACH: Right radial artery. COMPLICATION: None. LEVEL OF SEDATION: Moderate with sedation length of 11 minutes. PROCEDURE DESCRIPTION: After obtaining an informed consent, the patient was brought to cardiac cathode maker. The right radial artery was cannulated using micropuncture technique and a micropuncture wire passed easily then I placed 5-German sheath in the right radial artery. After that, I did selective right and left coronary angiogram using JR4 and JL3.5 catheters. Left heart catheterization was performed using the JR4 catheter which flipped into the LV then I did pullback across aortic valve. I did give the patient 10,000 units of heparin at the beginning and 2 mg of verapamil IA. SELECTIVE CORONARY ANGIOGRAM: 1. The right coronary artery is a large caliber vessel. It is a dominant vessel and appeared to be angiographically normal. 2. The left main is angiographically normal. It bifurcates into left circumflex, ramus intermedius, and left anterior descending artery. 3. The left circumflex is a large caliber vessel. It is a nondominant vessel. It is angiographically normal. 4. The ramus intermedius is a large caliber vessel and appeared to be angiographically normal. 5. The LAD: The proximal LAD appeared to be normal. The mid LAD is normal as well and the LAD distally appeared to be normal and in the proximal portion gives rise into a large diagonal branch which appeared to be normal. HEMODYNAMICS: The left ventricular end-diastolic pressure was 18 mmHg and no gradient was identified across the aortic valve. CONCLUSION: 1. Normal coronary angiogram. 2. Mildly elevated left ventricular end-diastolic pressure. POSTPROCEDURE MANAGEMENT: Maximize medical treatment and follow up. MMODL / IJN: [id number] /
[2018-06-24 14:02] VITALS: BP 176/82; PULSE 79
== END ==
LOC: CATHCVL 08:22
PROVIDERS: ATTEND Internal Medicine Interventional Cardiology
DX: I42.9 Cardiomyopathy, unspecified (principal); I11.0 Hypertensive heart disease with heart failure; I50.9 Heart failure, unspecified; E66.3 Overweight; Z68.43 Body mass index [BMI] 50.0-59.9, adult; Z82.49 Family history of ischemic heart disease and other diseases of the circulatory system; G47.30 Sleep apnea, unspecified; Z99.89 Dependence on other enabling machines and devices; Z79.82 Long term (current) use of aspirin; Z79.899 Other long term (current) drug therapy
CPT/HCPCS: 93458; C1769; C1894; J2250; J2001; J1644; Q9967